=== PATIENT | male | born 1965 | race Caucasian/White ===

== ENCOUNTER 2023-05-29 10:00 | Emergency (ER) | payer SELFPAY ==
[~2023-05-29] VITALS: Ht 180.3 cm; Wt 79.0 kg
[2023-05-29 10:05] VITALS: O2SAT 99
[2023-05-29] MEDS ORDERED: KETOROLAC 30MG/ML VIAL IM ONE (10:45)
[2023-05-29] MEDS ORDERED: VALA100044 MT (11:56)
[2023-05-29 13:20] VITALS: BP 138/85; PULSE 72; RESP 19; TEMP 97.7
== END 2023-05-29 13:22 | disposition home or self-care (01) ==
LOC: ER 10:00
DX: B02.9 Zoster without complications (principal); E11.9 Type 2 diabetes mellitus without complications
CPT/HCPCS: 99283; 96372; J1885